=== PATIENT | female | born 1955 | race Caucasian/White ===

== ENCOUNTER 2019-12-22 12:22 | Emergency (ER) | payer BC ==
[~2019-12-22] VITALS: Ht 152.4 cm; Wt 61.0 kg
[2019-12-22] MEDS ORDERED: PANTOPRAZOLE IV 40 MG VIAL. IVP ONE (13:15)
[2019-12-22] MEDS ORDERED: IV NORMAL SALINE 1,000ML 1,000 ML IV ONE (13:15)
[2019-12-22] MEDS ORDERED: FAMOTIDINE 20 MG/2 ML VIAL IVP ONE (13:15)
[2019-12-22] MEDS ORDERED: ONDANSETRON PF 4 MG/2 ML VIAL. IVP ONE (13:15)
[2019-12-22 13:24] LABS: BASO % 1 % (0-3); EOS # 0.1 x10^3/uL (0.0-0.7); EOS % 1 % (0-3); HEMATOCRIT 38.9 % (36.0-47.0); HEMOGLOBIN 13.1 g/dL (12.0-15.5); LYMPH # 1.6 x10^3/uL (1.0-4.8); LYMPH % 34 % (24-48); MEAN CORPUSCULAR HEMOGLOBIN 30 pg (25-35); MEAN CORPUSCULAR HGB CONC 34 g/dL (31-37); MEAN CORPUSCULAR VOLUME 90 fL (79-100); MONO # 0.3 x10^3/uL (0.0-1.1); MONO % 6 % (0-9); NEUT # 2.7 x10^3uL (1.8-7.7); NEUT % 58 % (31-73); PLATELET COUNT 279 x10^3/uL (140-400); RED BLOOD COUNT 4.33 x10^6/uL (3.50-5.40); RED CELL DISTRIBUTION WIDTH 12.9 % (11.5-14.5); WHITE BLOOD COUNT 4.7 x10^3/uL (4.0-11.0)
--- NOTE | 2019-12-22 13:24 | RAD ---
Supine abdomen. HISTORY: Abdominal pain Supine view was taken of the abdomen. There is moderate stool in the right colon. There is no bowel obstruction. There is moderate scoliosis convex to the left. There is degenerative change in the lumbar spine. There are no abnormal calcifications. IMPRESSION: 1. Moderate stool in the colon. 2. Moderate scoliosis. 3. No bowel obstruction or other acute finding. Electronically signed by: Josemanuel Núñez MD (12/22/2019 1:21 PM) [id number]
[2019-12-22 13:29] LABS: CALCIUM 8.9 mg/dL (8.5-10.1); CREATININE 0.6 mg/dL (0.6-1.0); GFR 101.3; POTASSIUM 3.7 mmol/L (3.5-5.1)
[2019-12-22] MEDS ORDERED: LIDO:MAALOX 1:1 20 ML SINGLE DOSE. PO ONE (13:30)
--- NOTE | 2019-12-22 13:35 | PHYS DOC ---
Past History Past Medical History: High Cholesterol, Other Additional Past Medical Histor: ATROPIC GASTRITIS Past Surgical History: Hysterectomy Alcohol Use: None General Adult EDM: Chief Complaint: ABDOMINAL PAIN HPI: HPI: 64-year-old female presents with epigastric abdominal pain. She had a twinge of pain around her umbilicus this morning when she woke up. She did not think much of it. She took her omeprazole and went to work. While she was at work, her pain increased to a 9 out of 10. She describes it as a cramping sensation that radiated through to her back. It had moved up into her epigastric area at that time. The patient has subsided significantly since her arrival to the ED without intervention. She has not had pain like this before. She is concerned what it could be. She was feeling normal yesterday. She denies fever chills. No nausea, vomiting, diarrhea, or constipation. 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 Review of Systems: Review of Systems: Constitutional: Denies fever or chills Eyes: Denies change in visual acuity HENT: Denies nasal congestion or sore throat Respiratory: Denies cough or shortness of breath Cardiovascular: Denies chest pain or edema GI: Epigastric abdominal pain. Denies nausea, vomiting, bloody stools or diarrhea : Denies dysuria Musculoskeletal: Denies back pain or joint pain Integument: Denies rash Neurologic: Denies headache, focal weakness or sensory changes Endocrine: Denies polyuria or polydipsia Lymphatic: Denies swollen glands Psychiatric: Denies depression or anxiety Heart Score: Risk Factors: Risk Factors: DM, Current or recent (<one month) smoker, HTN, HLP, family history of CAD, obesity. Risk Scores: Score 0 - 3: 2.5% MACE over next 6 weeks - Discharge Home Score 4 - 6: 20.3% MACE over next 6 weeks - Admit for Clinical Observation Score 7 - 10: 72.7% MACE over next 6 weeks - Early Invasive Strategies Current Medications: Current Meds: Current Medications Medications (Trade) Dose Ordered Sig/Mitra Start Time Stop Time Status Last Admin Dose Admin Famotidine (Pepcid Vial) 20 mg 1X ONCE 12/22/19 13:15 12/22/19 13:16 DC Multi-Ingredient Mouthwash/Gargle (Gi Cocktail) 20 ml 1X ONCE 12/22/19 13:30 12/22/19 13:31 Ondansetron HCl (Zofran) 4 mg 1X ONCE 12/22/19 13:15 12/22/19 13:16 DC Pantoprazole Sodium (Protonix Vial) 40 mg 1X ONCE 12/22/19 13:15 12/22/19 13:16 DC Sodium Chloride 1,000 ml @ 1,000 mls/hr 1X ONCE 12/22/19 13:15 12/22/19 14:14 Allergies: Allergies: Allergies Coded Allergies Type Severity Reaction Last Updated Verified acetaminophen Allergy Unknown Swelling 12/22/19 Yes codeine Allergy Unknown Palpitations 12/22/19 Yes Physical Exam: PE: Constitutional: Well developed, well nourished, no acute distress, non-toxic appearance. [] HENT: Normocephalic, atraumatic, bilateral external ears normal, oropharynx moist, no oral exudates, nose normal. [] Eyes: PERRLA, EOMI, conjunctiva normal, no discharge. [] Neck: Normal range of motion, no tenderness, supple, no stridor. [] Cardiovascular:Heart rate regular rhythm, no murmur [] Lungs & Thorax: Bilateral breath sounds clear to auscultation [] Abdomen: Bowel sounds normal, soft, mild epigastric tenderness, no masses, no pulsatile masses. [] Skin: Warm, dry, no erythema, no rash. [] Back: No tenderness, no CVA tenderness. [] Extremities: No tenderness, no cyanosis, no clubbing, ROM intact, no edema. [] Neurologic: Alert and oriented X 3, normal motor function, normal sensory function, no focal deficits noted. [] Psychologic: Affect normal, judgement normal, mood normal. [] Current Patient Data: Labs: Laboratory Tests Test 12/22/19 13:08 White Blood Count 4.7 x10^3/uL (4.0-11.0) Red Blood Count 4.33 x10^6/uL (3.50-5.40) Hemoglobin 13.1 g/dL (12.0-15.5) Hematocrit 38.9 % (36.0-47.0) Mean Corpuscular Volume 90 fL (79-100) Mean Corpuscular Hemoglobin 30 pg (25-35) Mean Corpuscular Hemoglobin Concent 34 g/dL (31-37) Red Cell Distribution Width 12.9 % (11.5-14.5) Platelet Count 279 x10^3/uL (140-400) Neutrophils (%) (Auto) 58 % (31-73) Lymphocytes (%) (Auto) 34 % (24-48) Monocytes (%) (Auto) 6 % (0-9) Eosinophils (%) (Auto) 1 % (0-3) Basophils (%) (Auto) 1 % (0-3) Neutrophils # (Auto) 2.7 x10^3uL (1.8-7.7) Lymphocytes # (Auto) 1.6 x10^3/uL (1.0-4.8) Monocytes # (Auto) 0.3 x10^3/uL (0.0-1.1) Eosinophils # (Auto) 0.1 x10^3/uL (0.0-0.7) Basophils # (Auto) 0.0 x10^3/uL (0.0-0.2) Vital Signs: Vital Signs Date Time Temp Pulse Resp B/P (MAP) Pulse Ox O2 Delivery O2 Flow Rate FiO2 12/22/19 12:47 97.4 77 18 152/80 (104) 99 Room Air EKG: EKG: [] Radiology/Procedures: Radiology/Procedures: [] Impressions: Supine abdomen. HISTORY: Abdominal pain Supine view was taken of the abdomen. There is moderate stool in the right colon. There is no bowel obstruction. There is moderate scoliosis convex to the left. There is degenerative change in the lumbar spine. There are no abnormal calcifications. IMPRESSION: 1. Moderate stool in the colon. 2. Moderate scoliosis. 3. No bowel obstruction or other acute finding. Electronically signed by: Josemanuel James MD (12/22/2019 1:21 PM) [id number] DICTATED AND SIGNED BY: JOSEMANUEL JAMES MD DATE: 12/22/19 1326 CC: DEBBIE PEREZ DO; PEDRO OCONNOR MD ~ Course & Med Decision Making: Course & Med Decision Making Pertinent Labs and Imaging studies reviewed. (See chart for details) The patient's labs are unremarkable. Her KUB does not not show signs of obstruction. She does have moderate stool burden. This could be pain from constipation. Her urinalysis is pending. Her urinalysis is unremarkable. I have advised that she consider a bowel cleanout at home. She is stable for discharge at this time. [] Dragon Disclaimer: Dragon Disclaimer: This electronic medical record was generated, in whole or in part, using a voice recognition dictation system. Departure Departure: Impression: Primary Impression: Constipation by delayed colonic transit Additional Impression: Epigastric abdominal pain Disposition: HOME, SELF-CARE Condition: STABLE Referrals: PEDRO OCONNOR MD (PCP) Patient Instructions: Constipation, Adult, [id number] DEBBIE PEREZ DO Dec 22, 2019 13:35
[2019-12-22 13:36] LABS: ALBUMIN 4.1 g/dL (3.4-5.0); ALBUMIN/GLOBULIN RATIO 1.4 (1.0-1.7); TOTAL BILIRUBIN 0.6 mg/dL (0.2-1.0)
[2019-12-22 14:01] LABS: BACTERIA,URINE 0 /HPF (0-FEW); BILIRUBIN,URINE NEG (NEG); CLARITY,URINE CLEAR; COLOR,URINE YELLOW; GLUCOSE,URINE NEG (NEG); NITRITE,URINE NEG (NEG); RBC,URINE RARE /HPF (0-2); UROBILINOGEN,URINE 0.2 mg/dL (0.2 mg/dL); WBC,URINE OCC /HPF (0-4)
[2019-12-22 14:02] LABS: SQUAMOUS EPITHELIAL CELL,UR FEW /LPF
[2019-12-22 14:20] VITALS: BP 125/55
== END 2019-12-22 14:30 | disposition home or self-care (01) ==
LOC: ER 12:22
DX: K59.01 Slow transit constipation (principal); R10.13 Epigastric pain; E78.00 Pure hypercholesterolemia, unspecified; Z90.710 Acquired absence of both cervix and uterus; Z88.5 Allergy status to narcotic agent; Z88.6 Allergy status to analgesic agent
CPT/HCPCS: 36415; 74018; 80053; 81001; 83690; 85025; 96374; 96375; 99284; C9113; J2405; J3490; J7030